=== PATIENT | female | born 1985 | race Caucasian/White ===

== ENCOUNTER 2022-02-18 08:27 | Day surgery (SDC) | payer OTHER ==
[~2022-02-18] VITALS: Ht 152.4 cm; Wt 94.5 kg
[2022-02-18 09:34] VITALS: BP 119/87; PULSE 101; TEMP 97.3
[2022-02-18] MEDS ORDERED: AMBIEN 5MG TABLE5 MG PO (09:45)
[2022-02-18] MEDS ORDERED: PHENTERMINE15 MG PO (09:45)
[2022-02-18 10:20] VITALS: BP 96/66; PULSE 82; TEMP 96.8
[2022-02-18 10:35] VITALS: BP 107/70; PULSE 81
[2022-02-18 10:50] VITALS: BP 113/60; PULSE 64
--- NOTE | 2022-02-18 11:12 | NUR ---
PT dismissed from endo via wheelchair to the PT entrence by a tech. PT has DC packet and personal belongings in hand, and was transferred into the care of her mother who is present to drive private car.
== END 2022-02-18 11:15 | disposition home or self-care (01) ==
LOC: SDCO 08:27
DX: K21.00 Gastro-esophageal reflux disease with esophagitis, without bleeding (principal); R19.7 Diarrhea, unspecified; K21.9 Gastro-esophageal reflux disease without esophagitis; K76.0 Fatty (change of) liver, not elsewhere classified; Z90.89 Acquired absence of other organs; Z87.891 Personal history of nicotine dependence
CPT/HCPCS: J2704; J7120